=== PATIENT | male | born 1965 | race Caucasian/White ===

== ENCOUNTER → 2021-03-10 17:36 | Outpatient (CLI) | payer BC, SELFPAY ==
[2021-03-10 17:54] LABS: Basophils # 0.1 K/mm3 (0-0.2); Basophils % 0.6 % (0.1-2.0); Eosinophils # 0.5 K/mm3 (0.0-0.4); Eosinophils % 6.2 % (0.1-12.0); Hematocrit 47.7 % (42.0-52.0); Lymphocytes # 2.4 K/mm3 (0.7-4.5); Lymphocytes % 28.8 % (10-50); Mean Corpuscular HGB Conc 31.4 g/dL (31.8-35.4); Mean Corpuscular Hemoglobin 32.4 pg (27.0-31.2); Mean Corpuscular Volume 103.1 fl (80-94); Mean Platelet Volume 7.9 fl (7.4-10.4); Monocytes # 0.5 K/mm3 (0.1-1.0); Monocytes % 6.6 % (1.7-9.3); Neutrophils # 4.8 K/mm3 (1.8-7.8); Neutrophils % 57.8 % (37.0-80.0); Platelet Count 274 K/mm3 (142-424); Red Blood Count 4.63 M/mm3 (4.60-6.20); Red Cell Distribution Width 13.2 % (11.5-17.5); White Blood Count 8.3 K/mm3 (4.8-10.8)
[2021-03-10 17:55] LABS: Chloride 102 mmol/L (98-107); Sodium 138 mmol/L (136-145)
[2021-03-10 17:58] LABS: Alanine Aminotransferase 11 U/L (12-78); Albumin Level 4.3 g/dl (3.5-5.0); Albumin/Globulin Ratio 1.8 (1.1-1.8); Alkaline Phosphatase 96 U/L (38-126); Aspartate Amino Transferase 19 U/L (17-59); Bilirubin,Total 0.5 mg/dl (0.2-1.3); Blood Urea Nitrogen 11 mg/dl (9-20); Calcium 9.3 mg/dl (8.4-10.2); Carbon Dioxide 30 mmol/L (22.0-30.0); Chol/HDL Ratio 3.4 (1-3.5); Cholesterol 158 mg/dl (140-200); Estimated Glomerular Filt Rate 87 ml/min (>60); GFR (African American) 106 ML/MIN (>60); Globulin 2.4 g/dL (1.3-3.2); Glucose 95 mg/dl (74-100); HDL Cholesterol 47 mg/dl (40-60); Total Protein,Serum 6.7 g/dl (6.3-8.2); Triglycerides 61 mg/dl (30-150); VLDL Cholesterol 12 mg/dL (0-40)
[2021-03-10 18:10] LABS: Direct LDL Cholesterol 98.46 mg/dL (100-129)
[2021-03-10 18:15] LABS: T4 (Thyroxine) 9.5 ug/dl (5.53-11.0)
[2021-03-10 18:28] LABS: Thyroid Stimulating Hormone 1.75 uIU/mL (0.465-4.68)
[2021-03-13 06:33] LABS: PSA, Free 0.16 ng/mL; Prostate Specific Ag 0.7 ng/mL (0.0-4.0)
== END ==
PROVIDERS: Visit Provider Nurse Practitioner Family
DX: R63.4 Abnormal weight loss (principal); R07.9 Chest pain, unspecified; K21.9 Gastro-esophageal reflux disease without esophagitis; Z72.0 Tobacco use; Z12.5 Encounter for screening for malignant neoplasm of prostate
CPT/HCPCS: 80053; 80061; 84153; 84154; 84436; 84443; 85025

== ENCOUNTER → 2021-04-15 07:08 | Outpatient (CLI) | payer BC, SELFPAY ==
--- NOTE | 2021-04-15 07:08 | CT_ITS ---
PROCEDURE: CT LUNG SCREENING CLINICAL INDICATION: lung cancer screening COMPARISON: No exams were available for comparison TECHNIQUE: The exam was performed on a GE Light Speed [address] scanner using 2.90 mGy CTDI. A low dose helical CT CHEST was performed on a multi-detector scanner. All CT scans at the facility use one or more dose reduction, viz: automated exposure control, ma/kV adjustment per patient size (including targeted exams where dose is matched to indication, i.e. head), or iterative reconstruction technique. The LDCT was performed in a facility that meets the criteria for the screening program. Data regarding this exam was submitted to ACR which is an approved registry. The order for this exam indicates that it came as a result of a lung cancer screening counseling shard decision-making visit that included all the elements required of such a visit including smoking cessation. The radiologist interpreting this exam meets the CMS criteria for the LDCT lung cancer screening program. The exam is reported using the Lung-RADS classification scale and reported to the ACR registry. NOTE: This study was performed for the specific purposes of lung cancer screening and is not an alternative to diagnostic chest CT. RADIATION DOSE: CTDI vol(CT dose Index-volume) = 2.90mG FINDINGS: Scattered emphysematous changes with biapical scarring and moderate-sized areas of bullous emphysema in the lung apices. No definitive discrete pulmonary nodules. No pleural effusion or pneumothorax. Heart is not enlarged. No pericardial effusion or thickening. A few small non-specific middle mediastinal lymph nodes not pathologically enlarged. No enlarged hilar or axillary nodes. A few small calcified paratracheal and left hilar lymph nodes are present. Thoracic aorta shows mild calcification without aneurysm. Airways are patent. No pulmonary consolidation or ground-glass opacities in the lungs. Images of the upper abdomen show no discrete abnormality. Mild degenerative changes of the thoracic spine are noted. No acute bony abnormality. IMPRESSION: Lung-RADS Category 1 Negative Follow-up: Serial follow-up chest CT in 1 year. Scattered emphysematous changes with biapical scarring and moderate-sized areas of bullous emphysema in the lung apices. No definite discrete pulmonary nodules. Dictated by: Alonso Cunningham 04/25/2021 11:15 Alonso Cunningham in [place] 04/25/2021 11:15
== END ==
LOC: RAD 07:08
PROVIDERS: PCP Nurse Practitioner Family; Visit Provider Internal Medicine Pulmonary Disease
DX: Z87.891 Personal history of nicotine dependence (principal); Z12.2 Encounter for screening for malignant neoplasm of respiratory organs; R06.02 Shortness of breath
CPT/HCPCS: 71271; 94060; 94618; 94726; 94729

== ENCOUNTER → 2021-04-18 10:28 | Outpatient (CLI) | payer BC, SELFPAY ==
--- NOTE | 2021-04-18 | CA_ITS ---
APPROVED REPORT Exam: Pharmacologic Technologist: leann ken, Ht: 5 ft 11 in Wt: 122 lbs BSA: 1.71 m2 HR: 52 bpm BP: 113/79 mmHg Indications: CP, SOB Medical History Medications: Omeprazole,,,,, Allergies: NKA Cardiac Risk Factors: FHX of CAD, Smoking Stress Test Details Test: LEXISCAN HR Resting HR: 53 bpm Max Heart Rate (APMHR): 164.344217 bpm Max HR Achieved: 112 bpm Target HR (85% APMHR): 139.518578 bpm % of APMHR: 68.29 Recovery HR: 84 bpm BP Resting BP: 113/79 mmHg Max BP: 131/85 mmHg Recovery BP: 125.0/81.0 mmHg ECG Clinical Exercise duration: 04:21 min Highest Stage Achieved: Stress ECG Conclusion No chest pain. SOA, nausea and vomiting during peak infusion which resolved in recovery. No ectopy just artifact. Less than 1.5mm ST segment changes. Images to follow. Electronically signed by : Esau Simon, 04/22/2021 12:49:29
--- NOTE | 2021-04-18 11:05 | NM_ITS ---
APPROVED REPORT Exam: Nuclear Stress Test Indication: Chest pain, SOB, Tobacco use, Family history Patient Location: Outpatient Stress Tech: Yaneth Bauer [place] Tech:Jocelynjeni Guillermo, ARRT, RT (R)(N) Ht: 5 ft 11 in Wt: 123 lbs HR: 52 bpm BP: 113/79 mmHg BSA: 1.72 m2 BMI: 17.1 History: Chest pain, SOB, Tobacco use, Family history Procedure: Patient received a 0.4 mg of intravenous Lexiscan, resting heart rate 52 bpm, resting blood pressure 113/79 mmHg, with Lexiscan maximum heart rate achived was 112 bpm which is % of the maximum predicted heart rate and blood pressure was 131/85 mmHg. With Lexiscan, patient denied any complaint of chest pain. Cardiac Stress and Resting SPECT Images: Cardiac Stress and Resting SPECT images were obtained using technetium 99m Myoview 32.7 mCi stress and 10.53 mCi at rest. Ejection fraction: 37% Global Hypokinesia. No fixed or reversible defects. Conclusion: Low EF of 37% with no ischemic changes. Electronically signed by : Antonio Whitney MD 04/20/2021 14:23:28
--- NOTE | 2021-04-18 12:29 | HMH.ITSHM ---
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 []omeprazole
== END ==
LOC: RT 10:30
PROVIDERS: PCP Nurse Practitioner Family; Visit Provider Urology
DX: R06.02 Shortness of breath (principal)
CPT/HCPCS: 78452; 93017; 93306; A9502; J2785

== ENCOUNTER → 2021-05-03 10:59 | Outpatient (CLI) | payer BC, SELFPAY ==
--- NOTE | 2021-05-03 11:28 | CT_ITS ---
PROCEDURE INFORMATION: Exam: CT Neck Without and With Contrast Exam date and time: 05/03/2021 11:28 AM Age: 55 years old Clinical indication: Dysphagia / difficulty swallowing; Additional info: Abnormal pft TECHNIQUE: Imaging protocol: Computed tomography images of the neck without and with contrast. Radiation optimization: All CT scans at this facility use at least one of these dose optimization techniques: automated exposure control; mA and/or kV adjustment per patient size (includes targeted exams where dose is matched to clinical indication); or iterative reconstruction. Contrast material: ISOVUE 370; Contrast volume: 75 ml; Contrast route: IV; COMPARISON: CT LUNG SCREENING 04/15/2021 7:13 AM FINDINGS: Nasopharynx: Unremarkable. Oropharynx: Unremarkable. No significant tonsillar enlargement. Hypopharynx: Unremarkable. Larynx: Unremarkable. Normal epiglottis. Retropharyngeal space: Unremarkable. Submandibular/Parotid glands: Normal. Glands are normal in size. Thyroid: Normal. No enlarged or calcified nodules. Lymph nodes: Unremarkable. No lymphadenopathy. Trachea: Visualized trachea is unremarkable. Lungs: Severe centrilobular emphysematous changes are present bilaterally with multiple bulla. Bones/joints: There are degenerative changes of the spine. Soft tissues: Unremarkable. No significant soft tissue swelling. IMPRESSION: 1. No evidence of acute abnormality. 2. Severe centrilobular emphysematous changes are present bilaterally with multiple bulla.
[2021-05-03 11:38] LABS: Basophils # 0.1 K/mm3 (0-0.2); Basophils % 0.6 % (0.1-2.0); Eosinophils # 0.3 K/mm3 (0.0-0.4); Eosinophils % 2.7 % (0.1-12.0); Hematocrit 44.8 % (42.0-52.0); Hemoglobin 15.2 g/dL (14.1-18.0); Lymphocytes # 2.2 K/mm3 (0.7-4.5); Lymphocytes % 19.3 % (10-50); Mean Corpuscular HGB Conc 33.9 g/dL (31.8-35.4); Mean Corpuscular Hemoglobin 33.1 pg (27.0-31.2); Mean Corpuscular Volume 97.6 fl (80-94); Mean Platelet Volume 7.7 fl (7.4-10.4); Monocytes # 0.7 K/mm3 (0.1-1.0); Monocytes % 6.1 % (1.7-9.3); Neutrophils % 71.3 % (37.0-80.0); Platelet Count 273 K/mm3 (142-424); Red Blood Count 4.58 M/mm3 (4.60-6.20); Red Cell Distribution Width 13.6 % (11.5-17.5); White Blood Count 11.2 K/mm3 (4.8-10.8)
[2021-05-03 11:43] LABS: Blood Urea Nitrogen 12 mg/dl (9-20)
[2021-05-03 11:49] LABS: Estimated Glomerular Filt Rate 77 ml/min (>60); GFR (African American) 94 ML/MIN (>60)
[2021-05-03 12:37] LABS: Chloride 102 mmol/L (98-107); Potassium 4.3 mmoL/L (3.5-5.1); Sodium 138 mmol/L (136-145)
[2021-05-03 12:40] LABS: Anion Gap 12.3 mEq/L (5-15); Blood Urea Nitrogen 13 mg/dl (9-20); Calcium 9.2 mg/dl (8.4-10.2); Carbon Dioxide 28 mmol/L (22.0-30.0); Estimated Glomerular Filt Rate 87 ml/min (>60); GFR (African American) 106 ML/MIN (>60); Glucose 101 mg/dl (74-100)
== END ==
PROVIDERS: Nurse Practitioner Family; PCP Nurse Practitioner Family; Visit Provider Internal Medicine Pulmonary Disease
DX: R94.2 Abnormal results of pulmonary function studies (principal); I20.9 Angina pectoris, unspecified; Z72.0 Tobacco use; Z01.812 Encounter for preprocedural laboratory examination; U07.1 COVID-19
CPT/HCPCS: 36415; 70492; 80048; 82565; 84520; 85025; Q9967; U0003

== ENCOUNTER 2021-05-04 08:43 | Day surgery (SDC) | payer BC, SELFPAY ==
[2021-05-04] VITALS (11 sets, daily range): BP systolic 76–109; BP diastolic 46–73; PULSE 48–64; RESP 13–20; O2SAT 95–100; BMI 17.0
--- NOTE | 2021-05-04 | IR_ITS ---
APPROVED REPORT Patient Location: Outpatient PROCEDURES Left heart catheterization Left ventriculogram Selective coronary angiogram INDICATION Systolic congestive heart failure ejection fraction 37%, High risk abnormal Myoview Informed consent was obtained prior to the procedure. COMPLICATIONS NONE Estimated Blood Loss: LESS THAN 10 ML TECHNIQUE One percent lidocaine used to anesthetize the right anterior aspect of the wrist. The right radial artery was accessed via the Seldinger technique. A 6 Guinean sheath was placed in the right radial artery. 2.5 mg of verapamil, 800 mcg of nitroglycerin, 1mg Lidocaine and 5000 U Heparin were given through the arterial sheath. The trap catheter was also used to perform left heart catheterization, left ventriculogram and selective coronary angiogram. At the end of the procedure the sheath was removed good hemostasis was achieved using Traclet band, patient was transferred to the postop holding area in stable condition. ANGIOGRAPHIC RESULTS The left main artery Normal The left anterior descending artery Proximally normal with a mid vessel 30% stenosis The circumflex artery Nondominant normal The right coronary artery Dominant normal The DURON ventriculogram reveals Mildly dilated ventricle with ejection fraction of 40% The left ventricular end-diastolic pressure 10 mmHg IMPRESSION Mild nonflow limiting mid LAD disease as described above Vertical heart which is mildly dilated with mildly reduced ejection fraction Normal left ventricular end-diastolic pressure PLAN 1. Medical management Electronically signed by : Esau Simon, 05/04/2021 12:18:57
== END 2021-05-04 14:59 | disposition home or self-care (01) ==
LOC: CATHLAB 08:48
PROVIDERS: PCP Emergency Medicine; Visit Provider Internal Medicine
DX: R94.39 Abnormal result of other cardiovascular function study (principal); I50.20 Unspecified systolic (congestive) heart failure; F17.210 Nicotine dependence, cigarettes, uncomplicated; Z79.899 Other long term (current) drug therapy; I20.9 Angina pectoris, unspecified
CPT/HCPCS: 93458; 99152; C1725; C1769; J1644; Q9967

== ENCOUNTER → 2021-06-01 08:59 | Outpatient (CLI) | payer BC, SELFPAY ==
--- NOTE | 2021-06-01 09:00 | FL_ITS ---
PROCEDURE: FL BARIUM SWALLOW CLINICAL INDICATION: diff swallowing COMPARISON: No exams were available for comparison TECHNIQUE: In the upright position the patient was observed to swallow barium in both the AP and lateral view. The cervical esophagus was examined under fluoroscopy with images obtained. The patient was then placed prone in the right anterior oblique position and was observed to swallow barium with Valsalva technique . FLUOROSCOPY TIME: 2 minutes 27 seconds, dose 45.0 mGy FINDINGS: The swallowing function and soft motility appear normal. Spot films of the cervical esophagus show very minimal posterior indentation at the C5-6 level secondary to spurring of the C5-6 disc space. There is a small sliding hiatal hernia. There is no significant GE reflux seen during the study. IMPRESSION: Minimal posterior indentation of the cervical esophagus secondary to mild degenerate change along the small sliding hiatal hernia, otherwise normal appearing esophagus Dictated by: Dr. Magen Wing MD 06/01/2021 11:06 Dr. Magen Wing MD in [place] 06/01/2021 11:06
== END ==
PROVIDERS: PCP Emergency Medicine; Visit Provider Otolaryngology
DX: R13.10 Dysphagia, unspecified (principal)
CPT/HCPCS: 74220

== ENCOUNTER 2021-06-06 10:31 | Day surgery (SDC) | payer BC, SELFPAY ==
[2021-05-05 11:37] VITALS: BMI 16.9
[2021-06-01 10:08] VITALS: BMI 16.9
[2021-06-06] VITALS (7 sets, daily range): BP systolic 93–120; BP diastolic 47–81; PULSE 52–59; RESP 16–18; TEMP 36.4–36.9; O2SAT 96–98
--- NOTE | 2021-06-06 11:59 | HMH.ANESCL ---
[facility] Anesthesia Checklist - Patient Identification Patient Identification: Arm Band - Structural Data Admitted From: Home Planned Operative Procedure/s: egd Consent for Planned Operative Procedure(s) Verified: Yes Verified Documents: Surgical Consent, History and Physical - NPO Status Verified Time NPO: 00:00 - Additional verifications Anesthesia Reactions: No - Airway Assessment C-Spine Mobility Assessed: Yes (mp2) TMJ Mobility Assessed: Yes Dentition: Edentulous - Neurological Assessment Level of Consciousness: Awake, Alert - Anesthesia Plan Anesthesia Risk discussed: Yes Anesthesia Plan: Verified ASA Class: III Anesthesia Type: MAC [facility] History I have reviewed the patient's past medical history: Yes Medical History: Reports:: Chronic Obstructive Pulmonary Disease (COPD), Coronary Artery Disease, Gastroesophageal Reflux Disease(GERD) Denies:: Cancer, Diabetes Mellitus Type 1, Diabetes Mellitus Type 2, Internal Pacemaker, MRSA, Seizures *Have you ever received a pneumonia vaccine?: No *Have you received a flu vaccine this season?: No Anesthesia experience/problems:: nac Other Surgeries: Yes: Cardiac Catheterization, Other. No: Pacemaker Amputation: No Fractures: Yes (left leg) - *Social History Last grade of school completed: High school graduate Smoking Status: Current every day smoker Tobacco Type: cigarettes # Packs/Day (cigarettes): 1 Alcohol Intake: current Alcohol Intake Frequency:: holidays/special occasions only Substance Use Type: marijuana *Occupational Status:: employed Housing: house Household Members: none *Travel in the last 8 weeks: None Family Hx:: Cancer, Coronary Artery Disease
--- NOTE | 2021-06-06 12:20 | P.PCN_ITS ---
[facility] Procedure Note Procedure Note:: Upper Endoscopy Procedure Report: Esophagogastroduodenoscopy with cold biopsies and TTS balloon dilation Endoscopost: Amol Chacko II, MD Referring Physician: Leoncio Pierre M.D./Esau Simon M.D. Date of Procedure: June 06, 2021 Equipment: Olympus GIF 190 standard upper endoscope Sedation: MAC sedation Indications: Mr. Bradley is a 55-year-old gentleman with dysphagia for the last couple of years. This does occur with both liquids and solids. He will sometimes have painful swallowing. Initially, he felt that this may be because of his dentition and tooth loss. He was not chewing or masticating his food as well but recently this has occurred even with liquids. He does get some odynophagia. He has had some chest pain. He has had echocardiogram, stress test and cardiac catheterization. He does have a 37% cardiac ejection fraction but he does not have any coronary artery disease. The patient does report some occasional belching but no abdominal pain. His weight fluctuates and may be a little bit down from baseline. He does have a long history of acid reflux. He reports some early satiety. He also reports some raspy voice or loss of voice with some globus sensation. Procedure: Prior to the procedure, a history and physical exam was performed, and patient's medications and allergies were reviewed. The risks, benefits and alternatives of the sedation and procedure were discussed with the patient. All questions were answered and informed consent was obtained. The patient was brought to the procedure room. Patient identification and proposed procedure were verified by the physician and the nurse. The patient was placed in a left lateral decubitus position and the scope was passed under direct vision. Throughout the procedure, the patient's blood pressure, pulse, and oxygen saturations were monitored continuously. The upper GI endoscopy was accomplished without difficulty. The patient tolerated the procedure well. Findings: The scope was passed directly into the upper esophagus and advanced to the third portion of the duodenum. The post bulbar duodenum and duodenal bulb were normal with normal mucosa and conniventes. The scope was withdrawn through a normal duodenal bulb and pylorus into the stomach. There was some linear reactive gastropathy of the antrum with bile reflux. There was mild chronic gastritis of the body and fundus of the stomach. Upon retroflexion there was a small 2 cm hiatal hernia. Cold biopsies were taken from the antrum and lesser curvature. The scope was then withdrawn into the esophagus. There were 2 tongues of salmon-colored mucosa that were biopsied to rule out intestinal metaplasia. There was no evidence of reflux esophagitis. There was a distal esophageal ring/Schatzki's ring that was dilated to 60 Malian/20 mm with a TTS hydrostatic balloon. There were tertiary contractions and evidence of moderate esophageal dysmotility. The entire esophagus was dilated to 60 Malian/20 mm and there was some resistance at the cricopharyngeus (i.e. cricopharyngeal spasm). The remainder of the esophageal mucosa was normal. Impression: 1. Cricopharyngeal spasm status post dilation to 20 mm 2. Nonerosive GERD with mild esophageal dysmotility and small hiatal hernia (2 cm)?biopsies taken to rule out short segment Gonzalez's esophagus 3. Bile reflux with mild linear reactive gastropathy and mild chronic gastritis Plan: I will follow-up the biopsies. I would recommend PPI therapy presently. We will discuss additional treatment options. He should have some clinical improvement with dilation.
== END 2021-06-06 13:20 | disposition home or self-care (01) ==
LOC: OUTP 10:32
PROVIDERS: PCP Nurse Practitioner Family; Visit Provider Internal Medicine Gastroenterology
PROC: 0DJ08ZZ Inspection of Upper Intestinal Tract, Via Natural or Artificial Opening Endoscopic (ICD-10-PCS; CPT 43235; principal; 2021-06-06 14:30)
DX: J39.2 Other diseases of pharynx (principal); K21.9 Gastro-esophageal reflux disease without esophagitis; K22.4 Dyskinesia of esophagus; K44.9 Diaphragmatic hernia without obstruction or gangrene; K31.9 Disease of stomach and duodenum, unspecified; K29.50 Unspecified chronic gastritis without bleeding; J44.9 Chronic obstructive pulmonary disease, unspecified; I25.10 Atherosclerotic heart disease of native coronary artery without angina pectoris; Z72.0 Tobacco use; F12.90 Cannabis use, unspecified, uncomplicated; Z80.9 Family history of malignant neoplasm, unspecified; Z82.49 Family history of ischemic heart disease and other diseases of the circulatory system
CPT/HCPCS: 43239; 43249; C1726

== ENCOUNTER → 2021-08-06 07:33 | Outpatient (CLI) | payer BC, SELFPAY | PROVIDERS: Visit Provider Internal Medicine Gastroenterology | DX: Z01.812 Encounter for preprocedural laboratory examination (principal); Z11.52 Encounter for screening for COVID-19; Z12.11 Encounter for screening for malignant neoplasm of colon | CPT/HCPCS: C9803; U0003; U0005 ==

== ENCOUNTER 2021-08-08 11:54 | Day surgery (SDC) | payer BC, SELFPAY ==
[2021-08-05 15:51] VITALS: BMI 16.9
[2021-08-08 12:22] VITALS: BP 113/66; PULSE 72; RESP 18; TEMP 37.1; O2SAT 99
--- NOTE | 2021-08-08 13:08 | P.PN_ITS ---
[facility] Anesthesia Checklist - Patient Identification Patient Identification: Arm Band - Structural Data Admitted From: Home Planned Operative Procedure/s: colonoscopy Consent for Planned Operative Procedure(s) Verified: Yes Verified Documents: Surgical Consent, History and Physical - NPO Status Verified Time NPO: 00:00 - Additional verifications Anesthesia Reactions: No - Airway Assessment C-Spine Mobility Assessed: Yes (mp2) TMJ Mobility Assessed: Yes Dentition: Good Dentition - Neurological Assessment Level of Consciousness: Awake, Alert - Anesthesia Plan Anesthesia Risk discussed: Yes Anesthesia Plan: Verified ASA Class: III Anesthesia Type: MAC [facility] History I have reviewed the patient's past medical history: Yes Medical History: Reports:: Chronic Obstructive Pulmonary Disease (COPD), Coronary Artery Disease, Gastroesophageal Reflux Disease(GERD), Hyperlipidemia, Hypertension Denies:: Cancer, Diabetes Mellitus Type 1, Diabetes Mellitus Type 2, Internal Pacemaker, MRSA, Seizures *Have you ever received a pneumonia vaccine?: No *Have you received a flu vaccine this season?: No Anesthesia experience/problems:: nac Other Surgeries: Yes: Cardiac Catheterization, Other. No: Pacemaker Amputation: No Fractures: Yes (left leg) - *Social History Last grade of school completed: High school graduate Smoking Status: Former smoker Tobacco Type: cigarettes # Packs/Day (cigarettes): 1 Smoking End Date: 05/2021 Alcohol Intake: current Alcohol Intake Frequency:: a few times a month Substance Use Type: marijuana *Occupational Status:: employed Housing: house Household Members: none *Travel in the last 8 weeks: None Family Hx:: Cancer, Coronary Artery Disease
--- NOTE | 2021-08-08 13:34 | HMH.PROC ---
[facility] Procedure Note Procedure Note:: Colonoscopy Procedure Report: Colonoscopy with cold snare polypectomy Endoscopist: Amol Chacko II, MD Referring physician: WILLA Winter Date of Procedure: August 08, 2021 Equipment: Olympus 190 variable stiffness pediatric colonoscope Sedation: MAC sedation Indication: Mr. Bradley is a 55-year-old gentleman who is here for diagnostic colonoscopy. He has had postprandial abdominal pain and pressure in the mid/right upper abdomen. This often results in either emesis or bowel movement which can provide some relief of the pain and pressure. He has had trouble maintaining his weight. He does get loose bowel movements or diarrhea since starting the ramipril. He did have an upper endoscopy with ar in May 2021 secondary to dysphagia. He did have some esophageal spasm/esophageal dysmotility. The patient reports no rectal bleeding but may have seen some mucus. He reports no family history of colitis, Crohn's disease or colon cancer. Procedure: Prior to the procedure, a history and physical exam was performed, and patient's medications and allergies were reviewed. The risks, benefits and alternatives of the sedation and procedure were discussed with the patient. All questions were answered and informed consent was obtained. The patient was brought to the procedure room. Patient identification and proposed procedure were verified by the physician and the nurse. The patient was placed in a left lateral decubitus position and the scope was passed under direct vision. Throughout the procedure, the patient's blood pressure, pulse, and oxygen saturations were monitored continuously. The colonoscopy was accomplished without difficulty. The patient tolerated the procedure well. Findings: On digital rectal examination there was normal rectal tone. There were no external hemorrhoids. The colonoscope was introduced through the anal canal to the rectum and advanced to the cecum. The ileocecal valve and appendiceal orifice were identified. The scope was advanced a short distance into the ileum which appeared grossly normal. The scope was then withdrawn into the colon. There were 3 colon polyps (ascending x1 (5 mm), descending x1 (6 mm) and sigmoid x1 (11 mm)) which were all removed via cold snare polypectomy. The remaining cecum, ascending, transverse, descending, sigmoid and rectum were grossly normal. There were no mucosal abnormalities identified. Upon retroflexion within the rectum there were grade 1-2 internal hemorrhoids.The preparation was excellent throughout with [place] Preparation Score of 9. The cecal time was 13 minutes. Impression: 1. Colonic polyps x3 2. Grade 1-2 internal hemorrhoids Plan: I will follow up the polyp pathology and recommend repeat colonoscopy again in 3-5 years based upon the polyp histology. I do feel that the patient has some visceral sensitivity/colonic spasm resulting in his postprandial pain and pressure. I would like to ensure that this does not represent any mesenteric angina and would consider CT angiography if this persists.
[2021-08-08 13:37] VITALS: BP 93/47; PULSE 51; RESP 16; TEMP 36.1; O2SAT 98
[2021-08-08 13:47] VITALS: BP 110/52; PULSE 78; RESP 18; TEMP 36.1; O2SAT 98
[2021-08-08 13:57] VITALS: BP 99/65; PULSE 54; RESP 18; TEMP 36.1; O2SAT 97
[2021-08-08 14:07] VITALS: BP 111/73; PULSE 57; RESP 18; TEMP 36.1; O2SAT 96
[2021-08-08 14:24] VITALS: BP 116/83; PULSE 52; RESP 18; TEMP 36.1; O2SAT 97
== END 2021-08-08 14:24 | disposition home or self-care (01) ==
LOC: OUTP 11:56
PROVIDERS: PCP Emergency Medicine; Visit Provider Internal Medicine Gastroenterology
PROC: 0DJD8ZZ Inspection of Lower Intestinal Tract, Via Natural or Artificial Opening Endoscopic (ICD-10-PCS; CPT 45378; principal; 2021-08-08 13:00)
DX: K63.5 Polyp of colon (principal); K64.0 First degree hemorrhoids; J44.9 Chronic obstructive pulmonary disease, unspecified; I25.10 Atherosclerotic heart disease of native coronary artery without angina pectoris; K21.9 Gastro-esophageal reflux disease without esophagitis; E78.5 Hyperlipidemia, unspecified; I10 Essential (primary) hypertension; Z79.82 Long term (current) use of aspirin; Z79.899 Other long term (current) drug therapy; Z80.9 Family history of malignant neoplasm, unspecified; Z82.49 Family history of ischemic heart disease and other diseases of the circulatory system
CPT/HCPCS: 45385

== ENCOUNTER → 2021-08-23 08:17 | Outpatient (CLI) | payer BC, SELFPAY ==
--- NOTE | 2021-08-23 08:30 | CT_ITS ---
PROCEDURE: CT ABDOMEN PELVIS W CON CLINICAL INDICATION: RUQ PAIN,EPIGASTRIC PAIN,WEIGHT LOSS COMPARISON: No exams were available for comparison TECHNIQUE: IV Contrast: 75ML Isovue 370 Oral Contrast None Axial images obtained with sagittal and coronal reformats. All CT scans at the facility use one or more dose reduction, viz: automated exposure control, ma/kV adjustment per patient size (including targeted exams where dose is matched to indication, i.e. head), or iterative reconstruction technique. FINDINGS: LOWER THORAX: No acute finding ABDOMEN & PELVIS: There are 2 hypodense lesions of the liver 1 in the left hepatic lobe segment 4A measuring 1.2 by 1 cm. This may have some peripheral enhancement inferiorly possibly due to a hemangioma. There is an additional hepatic hypodensity in the left hepatic lobe segment 4 B at 1.2 x 1 cm which is indeterminate. MRI of the abdomen with hemangioma protocol may provide further evaluation. No radiopaque gallstones identified The spleen, adrenal glands, and pancreas have an unremarkable appearance. No renal or ureteral calculi are evident. There are small bilateral renal cyst. No suspicious renal mass. No intestinal obstruction or free air. There is given history of prior appendectomy. Urinary bladder is slightly distended. There is some minimal nonspecific thickening of the bladder wall on both sides posteriorly. This is nonspecific. Prior vasectomy. There is degenerative disc disease at L5-S1 the. What appears to represent a small benign cortical defect present in the left ilium at 7 mm. No acute bony anomalies. IMPRESSION: 1. No acute finding. 2. Two nonspecific hepatic lesions which are indeterminate possibly due to hemangiomas. Suggest MRI of the liver with hemangioma protocol without and with contrast for further evaluation. 3. Mild nonspecific thickening of the urinary bladder which could be seen with cystitis. Other incidental findings as described above. 4. Dictated by: Antonio Whitney MD 08/24/2021 12:55 Antonio Whitney MD in [place] 08/24/2021 12:55
[2021-08-23 08:38] LABS: Blood Urea Nitrogen 12 mg/dl (9-20); Estimated Glomerular Filt Rate 87 ml/min (>60); GFR (African American) 106 ML/MIN (>60)
== END ==
PROVIDERS: PCP Emergency Medicine; Visit Provider Internal Medicine Gastroenterology
DX: R10.11 Right upper quadrant pain (principal); R10.13 Epigastric pain; R63.4 Abnormal weight loss; Z68.1 Body mass index [BMI] 19.9 or less, adult
CPT/HCPCS: 36415; 74177; 82565; 84520; Q9967

== ENCOUNTER → 2021-11-16 13:43 | Outpatient (CLI) | payer BC, SELFPAY | PROVIDERS: PCP Emergency Medicine; Visit Provider Nurse Practitioner Family | DX: I49.9 Cardiac arrhythmia, unspecified (principal) | CPT/HCPCS: 93270 ==

== ENCOUNTER → 2022-02-09 08:04 | Outpatient (CLI) | payer BC, SELFPAY ==
[2022-02-09 08:32] LABS: Blood Urea Nitrogen 10 mg/dl (9-20); Estimated Glomerular Filt Rate 77 ml/min (>60); GFR (African American) 93 ML/MIN (>60)
--- NOTE | 2022-02-09 08:40 | MR_ITS ---
FINAL REPORT CLINICAL HISTORY: RUQ PAIN, EPIGASTRIC PAIN, ABN FINDINGS ON DX IMAGING BLOATING AND GAS 12ML PROHANCE GIVEN COMPARISON: CT dated 08/23/2021 FINDINGS: Multiplanar MR imaging of the abdomen was performed without and with contrast. Motion artifact is identified on some of the images. There are 2 masses in the left hepatic lobe measuring 9 and 10 mm. These show peripheral contrast enhancement which increases over time. The appearance is most consistent with hemangiomas. There is no evidence of biliary ductal dilatation. The gallbladder has an unremarkable appearance. No abnormal fluid collection is seen. There are 2 left renal cysts measuring up to 10 mm. There is also a less than 1 cm renal cyst. No other mass or adenopathy is identified. IMPRESSION: Hepatic masses consistent with hemangiomas. Reviewed, Interpreted and Dictated by Joel Jimenes III, MD Transcribed by Aster Romero Authenticated by Joel Jimenes III, MD on 02/09/2022 01:48:24 PM [facility]
== END ==
PROVIDERS: PCP Emergency Medicine; Visit Provider Internal Medicine Gastroenterology
DX: R10.11 Right upper quadrant pain (principal); R10.13 Epigastric pain; R93.3 Abnormal findings on diagnostic imaging of other parts of digestive tract
CPT/HCPCS: 36415; 74183; 82565; 84520; A9576

== ENCOUNTER → 2022-04-20 14:22 | Outpatient (CLI) | payer BC, SELFPAY ==
--- NOTE | 2022-04-20 14:22 | CT_ITS ---
FINAL REPORT CLINICAL HISTORY: lung cancer screening, hx smoker for 43 years, 1 pack per day COMPARISON: April 15, 2021 FINDINGS: Low-Dose Chest CT CTDI vol (mGy): 2.90 DLP (mGy-cm): 116.72 Axial images were obtained from the lung apex to the mid abdomen by computed tomography. Low-dose protocol was utilized. FINDINGS: CHEST: There is no axillary adenopathy. There is no hilar or mediastinal adenopathy. The heart is proper size. There is no pericardial or pleural effusion. Limited images of the upper abdomen are unremarkable. Lung window images demonstrate severe emphysema with moderate areas of scarring. There is mild bronchiectasis in the lower lobes. There is a stable 2 mm nodule in the anterior right upper lobe on image 139. There is no new mass or pulmonary nodule. IMPRESSION: Lung RADS category 2. Recommend 12 month follow-up low-dose chest CT. Reviewed, Interpreted and Dictated by Joel Jimenes III, MD Transcribed by George El Authenticated and [facility]
== END ==
PROVIDERS: PCP Emergency Medicine; Visit Provider Internal Medicine Pulmonary Disease
DX: Z87.891 Personal history of nicotine dependence (principal); Z12.2 Encounter for screening for malignant neoplasm of respiratory organs
CPT/HCPCS: 71271

== ENCOUNTER 2022-05-05 13:41 | Emergency (ER) | payer BC, SELFPAY ==
[2022-05-05 13:50] VITALS: BP 109/76; PULSE 76; RESP 19; TEMP 37.1; O2SAT 98; BMI 16.2
--- NOTE | 2022-05-05 14:22 | HMH.EDUTC ---
[facility] [place] Disposition Clinical Impression: Viral syndrome Disposition: Home, Self-Care Condition on Discharge: Good Instructions: DI for COVID-19 (Suspected or Confirmed ), Preventing the Spread of Coronavirus Discharge Instructions Additional Instructions: *Monitor Temp, Over the counter Motrin or Tylenol as directed/as needed Tylenol every 4 hours and Motrin every 6 hours (as long as your family doctor has told you that you can take it) for fever or pain. and straight to ER if unable to lower temp less than 101.0 after medication given *Warm salt water gargles may help to soothe the throat *Throat Lozenges *Warm fluids like tea with honey may help to soothe the throat *Sleep elevated *Humidifier/Vaporizer *Flonase 2 sprays in each nostril daily but be aware that it may take 2-3 days before you notice improvement *Bromfed may cause drowsiness. Know how it effects you (your child) before driving, caring for small child, or sending your child to school. Not other antihistamines/allergy medications while taking bromfed Your throat swab was sent for culture. Those results are typically sent to your primary care. Be sure to follow up in 2-3 days with your family doctor/primary care physician if no improvement so they can review those result and treat if necessary. If you don?t have a primary care doctor, I recommend you get one but in the mean time, you will have to return to a walk in clinic Follow up IMMEDIATELY for new or worsening symptoms or no Noticeable improvement over the next 48-72 hours. 911 for difficulty breathing or swallowing You were tested for today for COVID19 your test result should be back in the next 24-48 hours, you may check your results on the [facility] my Health Portal Make sure to take your Vitamins Vit. C Vit D and Zinc if you can take them Referrals: Leoncio Pierre MD [Primary Care Provider] - As needed Forms: Work/School Release Medical Decision Making - Kenny Inquiry Pt receiving controlled substance: No Kenny was queried for this patient: No Vital Signs: 05/05/22 13:50 Temperature 98.7 F Temperature Source Oral Pulse Rate [Right Brachial] 76 Respiratory Rate 19 Blood Pressure [Right Arm] 109/76 L Blood Pressure Mean [Right Arm] 87 Blood Pressure Source [Right Arm] Automatic Cuff Blood Pressure Position [Right Arm] Sitting 02 Sat by Pulse Oximetry 98 Oxygen Delivery Method Room Air Orders (Tests/Meds): ORDERS Category Date Time Status Covid-19 Nasal PCR ([facility]) Routine Lab 05/05/22 14:[address] [facility] [place] HPI - General Stated complaint: covid test, symptoms Time Seen by Provider: 05/05/22 14:00 Mode of Arrival: Ambulatory Source of Information: Patient Limitations: No Limitations Description of Symptoms (Recalled from Triage Doc. by RN): PATIENT C/O FEVER AND MUSCLE SORENESS SINCE YESTERDAY. REQUESTING COVID TEST HEENT Symptoms (Recalled from RN notes): No Resp Symptoms (Recalled from RN notes): No Skin Symptoms (Recalled from RN notes): No MS Symptoms (Recalled from RN notes): Yes Functional Status (Recalled from RN notes): WNL - History of Present Illness Provider Complaint: Patient states that he started feeling bad yesterday States that he had fever yesterday and took an at home COVID test and it was positive States that he came in today to get tested for work since they do not accept home tests - Related Data Home Medications Medication Instructions Recorded Confirmed omeprazole 40 mg capsule,delayed 40 mg PO DAILY cap 07/20/21 05/05/22 release Aspirin [Aspirin 81mg chewable 81 mg PO DAILY 05/05/22 05/05/22 tab] Buspirone HCl [Buspar 5mg tablet] 5 mg PO DAILY 05/05/22 05/05/22 Allergies Allergy/AdvReac Type Severity Reaction Status Date / Time No Known Allergies Allergy Verified 04/20/22 14:48 - Worker's Comp Is this a Worker's Comp case?: No [facility] History - Hepatitis A Screen Attestation statement:: This patient has been screened for
[2022-05-05 14:32] VITALS: BP 109/76; PULSE 76; RESP 19; TEMP 37.1; O2SAT 98
== END 2022-05-05 14:34 | disposition home or self-care (01) ==
PROVIDERS: Emergency Provider Nurse Practitioner; PCP Emergency Medicine
DX: U07.1 COVID-19 (principal); R50.9 Fever, unspecified; R52 Pain, unspecified
CPT/HCPCS: 99212; C9803; G0463; U0003; U0005

== ENCOUNTER → 2023-01-23 13:56 | Outpatient (CLI) | payer BC, SELFPAY ==
--- NOTE | 2023-01-23 14:00 | XR_ITS ---
FINAL REPORT CLINICAL HISTORY: swelling and pain in top of RT foot,no known injur FINDINGS: Right foot Three views were obtained. There is no acute fracture or dislocation. The joint spaces appear normal. No soft tissue abnormality is identified. IMPRESSION: No acute process. Reviewed, Interpreted and Dictated by Joel Jimenes III, MD Transcribed by Aster Romero Authenticated and [facility]
== END ==
PROVIDERS: PCP Emergency Medicine; Visit Provider Emergency Medicine
DX: M79.671 Pain in right foot (principal); M79.89 Other specified soft tissue disorders
CPT/HCPCS: 73630

== ENCOUNTER 2024-04-10 13:51 | Outpatient (CLI) | payer BC, SELFPAY ==
[2024-04-10 14:14] LABS: Basophils # 0.1 K/mm3 (0-0.2); Basophils % 1.1 % (0.1-2.0); Eosinophils # 0.4 K/mm3 (0.0-0.4); Eosinophils % 5.9 % (0.1-12.0); Hematocrit 44.4 % (42.0-52.0); Hemoglobin 14.5 g/dL (14.1-18.0); Lymphocytes % 26.7 % (10-50); Mean Corpuscular HGB Conc 32.6 g/dL (31.8-35.4); Mean Corpuscular Hemoglobin 33.5 pg (27.0-31.2); Mean Corpuscular Volume 102.9 fl (80-94); Mean Platelet Volume 7.9 fl (7.4-10.4); Monocytes # 0.5 K/mm3 (0.1-1.0); Monocytes % 7.2 % (1.7-9.3); Neutrophils # 4.4 K/mm3 (1.8-7.8); Platelet Count 264 K/mm3 (142-424); Red Blood Count 4.31 M/mm3 (4.60-6.20); Red Cell Distribution Width 13.7 % (11.5-17.5); White Blood Count 7.4 K/mm3 (4.8-10.8)
[2024-04-10 15:45] LABS: Alanine Aminotransferase 15 U/L (12-78); Aspartate Amino Transferase 22 U/L (17-59); Blood Urea Nitrogen 15 mg/dl (9-20); Carbon Dioxide 31 mmol/L (22.0-30.0); Cholesterol 158 mg/dl (140-200); Estimated Glomerular Filt Rate 62 ml/min (>60); GFR (African American) 75 ML/MIN (>60); Triglycerides 68 mg/dl (30-150); VLDL Cholesterol 14 mg/dL (0-40)
[2024-04-10 15:58] LABS: Troponin I < 0.01 ng/ml (0.00-0.034)
[2024-04-10 16:03] LABS: Free T4 (Free Thyroxine) 0.88 ng/dl (0.78-2.19)
[2024-04-10 16:16] LABS: Thyroid Stimulating Hormone 2.45 uIU/mL (0.465-4.68)
[2024-04-10 17:18] LABS: Albumin Level 4.2 g/dl (3.5-5.0); Alkaline Phosphatase 96 U/L (38-126); Anion Gap 11.3 mEq/L (5-15); Bilirubin,Direct 0.2 mg/dl (0.0-0.4); Bilirubin,Indirect 0.4 mg/dL (0.0-0.9); Bilirubin,Total 0.6 mg/dl (0.2-1.3); Bilirubin,Unconjugated 0.4 mg/dL (0.0-1.1); Calcium 9.5 mg/dl (8.4-10.2); Chloride 102 mmol/L (98-107); Glucose 92 mg/dl (74-100); HDL Cholesterol 53 mg/dl (40-60); Potassium 4.3 mmoL/L (3.5-5.1); Sodium 140 mmol/L (136-145); Total Protein,Serum 6.8 g/dl (6.3-8.2)
[2024-04-10 17:29] LABS: Direct LDL Cholesterol 93.14 mg/dL (100-129)
== END 2024-04-10 23:59 | disposition home or self-care (01) ==
LOC: LAB 13:52
PROVIDERS: PCP Nurse Practitioner Family; Visit Provider Internal Medicine
DX: I25.118 Atherosclerotic heart disease of native coronary artery with other forms of angina pectoris (principal); R06.02 Shortness of breath; Z87.891 Personal history of nicotine dependence
CPT/HCPCS: 36415; 80048; 80061; 80076; 83735; 84439; 84443; 84484; 85025

== ENCOUNTER 2024-04-22 12:16 | Outpatient (CLI) | payer BC, SELFPAY ==
[2024-04-22] MEDS: ISOTOPE MYOVIEW (PER STUDY) 1 DOSE IV (14:22)
[2024-04-22] MEDS: SODIUM CHLORIDE 0.9% 10ML SYR (RAD ONLY) 10 ML IV ×2 (14:22)
== END 2024-04-22 23:59 | disposition home or self-care (01) ==
LOC: RAD 12:17
PROVIDERS: PCP Nurse Practitioner Family; Visit Provider Internal Medicine
DX: R06.02 Shortness of breath (principal); I25.118 Atherosclerotic heart disease of native coronary artery with other forms of angina pectoris
CPT/HCPCS: 78452; 93017; 93018; 93306; A9502

== ENCOUNTER 2024-06-06 07:47 | Day surgery (SDC) | payer BC, SELFPAY ==
[2024-06-06] VITALS (12 sets, daily range): BP systolic 89–122; BP diastolic 49–70; PULSE 43–52; RESP 14–19; TEMP 36.6; O2SAT 97–100; BMI 17.0
--- NOTE | 2024-06-06 07:03 | IR_ITS ---
APPROVED REPORT Patient Location: Outpatient PROCEDURES Left heart catheterization Left ventriculogram Selective coronary angiogram INDICATION Angina pectoris, Abnormal Myoview Informed consent was obtained prior to the procedure. COMPLICATIONS NONE Estimated Blood Loss: LESS THAN 10 ML TECHNIQUE One percent lidocaine used to anesthetize the right anterior aspect of the wrist. The right radial artery was accessed via the Seldinger technique. A 6 Tamazight sheath was placed in the right radial artery. 2.5 mg of Verapamil, 800 mcg of nitroglycerin, 1mg Lidocaine and 5000 U Heparin were given through the arterial sheath. The papa catheter was also used to perform left heart catheterization, left ventriculogram and selective coronary angiogram. At the end of the procedure the sheath was removed good hemostasis was achieved using Traclet band, patient was transferred to the postop holding area in stable condition. ANGIOGRAPHIC RESULTS The left main artery Normal The left anterior descending artery Proximal 10% luminal irregularities with mid vessel 20 to 30% smooth stenosis BEVERLY II flow was present down the vessel The circumflex artery Normal The right coronary artery Dominant normal The DURON ventriculogram reveals Preserved at 55 to 60% The left ventricular end-diastolic pressure 10 mmHg IMPRESSION Mild nonflow limiting coronary disease Slow flow down the LAD consistent with endothelial dysfunction Preserved ejection fraction Normal left ventricular end-diastolic pressure PLAN 1. Treatment of endothelial dysfunction. Consider nitrates and possibly Ranexa 2. Risk factor modification Electronically signed by : Esau Simon MD 06/06/2024 14:34:41
[2024-06-06 08:27] LABS: Basophils # 0.1 K/mm3 (0-0.2); Basophils % 0.9 % (0.1-2.0); Eosinophils # 0.4 K/mm3 (0.0-0.4); Eosinophils % 6.2 % (0.1-12.0); Hematocrit 43.3 % (42.0-52.0); Hemoglobin 13.5 g/dL (14.1-18.0); Lymphocytes # 1.7 K/mm3 (0.7-4.5); Lymphocytes % 24.8 % (10-50); Mean Corpuscular HGB Conc 31.1 g/dL (31.8-35.4); Mean Corpuscular Hemoglobin 32.3 pg (27.0-31.2); Mean Platelet Volume 7.8 fl (7.4-10.4); Monocytes # 0.5 K/mm3 (0.1-1.0); Monocytes % 7.4 % (1.7-9.3); Neutrophils # 4.1 K/mm3 (1.8-7.8); Neutrophils % 60.6 % (37.0-80.0); Platelet Count 232 K/mm3 (142-424); Red Blood Count 4.16 M/mm3 (4.60-6.20); Red Cell Distribution Width 13.4 % (11.5-17.5); White Blood Count 6.7 K/mm3 (4.8-10.8)
[2024-06-06 08:39] LABS: Chloride 109 mmol/L (98-107); Potassium 3.9 mmoL/L (3.5-5.1); Sodium 138 mmol/L (136-145)
[2024-06-06 08:42] LABS: Anion Gap 4.9 mEq/L (5-15); Blood Urea Nitrogen 16 mg/dl (9-20); Calcium 8.7 mg/dl (8.4-10.2); Carbon Dioxide 28 mmol/L (22.0-30.0); Creatinine Clearance Estimated 62 mL/min (50-200); Estimated Glomerular Filt Rate 76 ml/min (>60); GFR (African American) 93 ML/MIN (>60); Glucose 90 mg/dl (74-100)
[2024-06-06] MEDS: diphenhydrAMINE 50MG/ML VIAL 50 MG IV (09:57)
[2024-06-06] MEDS: 0.9 % SODIUM CHLORIDE 500 ML 25 ML IV (09:58)
[2024-06-06] MEDS: HEPARIN 1,000 UNITS/500ML NS (CATH LAB) 3000 UNIT IV (09:58)
[2024-06-06] MEDS: NITROGLYCERIN 800MCG/8ML SYR (CATH LAB) 800 MCG IA (09:59)
[2024-06-06] MEDS: LIDOCAINE 1% 10ML MDV 20 ML IJ (10:00)
[2024-06-06] MEDS: VERAPAMIL 2.5MG/ML 2ML VIAL 2.5 MG IV (10:00)
[2024-06-06] MEDS: HEPARIN 1,000 UNITS/ML 10ML VIAL (CATH LAB) 10000 UNIT IV (10:00)
[2024-06-06] MEDS: FENTANYL 100MCG/2ML VIAL 50 MCG IV (10:28)
[2024-06-06] MEDS: MIDAZOLAM HCL 1MG/1ML 5ML VIAL 1 MG IV (10:28)
[2024-06-06] MEDS: IOPAMIDOL-370 (76%);100ML BOTTLE 80 ML IV (13:51)
--- NOTE | 2024-06-06 15:03 | SUR.PHASEII ---
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 pt verbalized understanding.
== END 2024-06-06 13:20 | disposition home or self-care (01) ==
PROVIDERS: PCP Nurse Practitioner Family; Visit Provider Internal Medicine
DX: I25.118 Atherosclerotic heart disease of native coronary artery with other forms of angina pectoris (principal); R93.1 Abnormal findings on diagnostic imaging of heart and coronary circulation; R94.39 Abnormal result of other cardiovascular function study; E78.5 Hyperlipidemia, unspecified; F17.210 Nicotine dependence, cigarettes, uncomplicated; Z79.899 Other long term (current) drug therapy
CPT/HCPCS: 80048; 85025; 93458; 99152; C1725; C1769; J1200; J1644; J2250; J3010; Q9967

== ENCOUNTER 2024-08-01 15:50 | Emergency (ER) | payer BC, SELFPAY ==
[2024-08-01] VITALS (8 sets, daily range): BP systolic 109–130; BP diastolic 66–84; PULSE 60–80; RESP 18–20; TEMP 37–37.2; O2SAT 95–99; BMI 16.8; BMI 16.7
--- NOTE | 2024-08-01 15:57 | XR_ITS ---
FINAL REPORT CLINICAL HISTORY: pain and swelling COMPARISON: None FINDINGS: Three views of the right knee were obtained. There is no acute fracture or dislocation. There is mild narrowing of the medial compartment joint space. Soft tissue edema is noted anterior to the patella. IMPRESSION: Soft tissue edema without acute bony abnormality. Mild medial compartment joint space narrowing. Reviewed, Interpreted and Dictated by Ricardo Wyatt MD Transcribed by Daphney Casas Authenticated and [facility]
--- NOTE | 2024-08-01 16:20 | ED_ITS ---
Discharge Plan Disposition Patient Disposition: Home, Self-Care Prescriptions Prescriptions: New sulfamethoxazole-trimethoprim [Bactrim DS] 800-160 mg tablet 1 tab PO BID Qty: 20 0RF No Action metoprolol succinate [Toprol XL] 25 mg tablet extended release 24 hr 25 mg PO DAILY Qty: 30 5RF aspirin [Adult Low Dose Aspirin] 81 mg tablet,delayed release (DR/EC) 81 mg PO DAILY Qty: 30 2RF omeprazole 40 mg capsule,delayed release(DR/EC) 40 mg PO DAILY Qty: 90 3RF prednisone 20 mg tablet 20 mg PO BID 5 Days Qty: 10 0RF rosuvastatin [Crestor] 10 mg tablet 10 mg PO DAILY Qty: 30 5RF isosorbide mononitrate 30 mg Tablet Extended Release 24 Hr 30 mg PO DAILY 30 Days Qty: 30 3RF Referrals Follow up/Referrals: Nader Pompa APRN [Primary Care Provider] - See instructions Activity Restrictions/Add. Instructions Additional Instructions/Restrictions: Please start taking the antibiotics as prescribed as soon as you pick them up. Take [id number] pain medications as needed. It is advised that you apply compression using an Kenny wrap and keep the leg elevated while you do not have to be up and walking around. If your symptoms do not start improving over the next 2 to 3 days, please return for reevaluation. If you develop fevers, worsening pain or inability to bend the knee or walk, please return to the ER for reevaluation. Clinical Impressions Clinical Impression: Cellulitis Qualifiers: Site of cellulitis of extremity: lower extremity Laterality: right Instructions Patient Instructions: DI for Cellulitis -- Adult Print Language Print Language: Latvian Discharge ED Provider: Delmis Sanchez [facility] General Chief complaint: Extremity Problem,Nontraumatic Stated complaint: RT knee swelling, painful Mode of Arrival: Ambulatory Source of Information: Patient Time Seen by Provider: 08/01/24 16:15 Description of Symptoms (Recalled from Triage Doc. by RN): RIGHT KNEE RED, SWOLLEN, TENDER TO TOUCH, PAIN 6/10 HEENT Symptoms (Recalled from RN notes): No Resp Symptoms (Recalled from RN notes): No Skin Symptoms (Recalled from RN notes): Yes MS Symptoms (Recalled from RN notes): Yes Functional Status (Recalled from RN notes): WNL History of Present Illness Provider Complaint: Patient states that he has been having some pain and swelling in his right knee and lower leg that has got progressively worse over the last couple of days States swelling and redness worse in his knee but has been swelling down to his sock line and hurts worse when moves or bends his knee and feels like there is a fluid pocket in there, States doesnt thinks he has had a fever but not checked it but did have some nausea today and noticed the knee area was more red and hot feeling and he couldnt hardly bend his knee so he came in Related Data Previous Rx's ?Medication ?Instructions ?Recorded rosuvastatin 10 mg tablet (Crestor) 10 mg PO DAILY #30 tabs 04/11/24 aspirin 81 mg tablet,delayed 81 mg PO DAILY #30 tabs 05/14/24 release (Adult Low Dose Aspirin) metoprolol succinate 25 mg 25 mg PO DAILY #30 tabs 05/14/24 tablet,extended release 24 hr (Toprol XL) isosorbide mononitrate 30 mg 30 mg PO DAILY 30 days #30 tabs 06/06/24 tablet,extended release 24 hr omeprazole 40 mg capsule,delayed 40 mg PO DAILY GERD #90 caps 07/23/24 release prednisone 20 mg tablet 20 mg PO BID 5 days #10 tabs 07/23/24 sulfamethoxazole 800 1 tab PO BID #20 tabs 08/01/24 mg-trimethoprim 160 mg tablet (Bactrim DS) Allergies Allergy/AdvReac Type Severity Reaction Status Date / Time No Known Allergies Allergy Verified 07/23/24 10:26 Worker's Comp Is this a Worker's Comp case?: No [facility] Disclaimer: The information contained in this section may have been updated after the patient was seen, as this information can be updated by other users. 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 GERD (gastroesophageal reflux disease) Surgical History History of cardiac cath Family History Other No significant family history Social History Smoking Status: Former smoker tobacco type: cigarettes packs per day: 1 smoking status start date: 1976 years smoked: 43 smoking status stop date: 2020 how long ago did patient quit smokin years second hand exposure: Yes alcohol intake: current alcohol intake frequency: holidays/special occasions only substance use type: marijuana current occupational status: other Travel in the last 8 weeks: None household members: none housing: house current occupational exposures/hazards: No caffeine: Yes ROS Obtained: Yes All systems reviewed & no additional complaints except as documented and Yes Systems reviewed as appropriate & no additional complaints except as documented Constitutional Constitutional: Reports system reviewed and no additional complaints, except as documented, Reports as per HPI and Denies fever(s) (doest think so hasnt checked it) ENT Ears, Nose, Mouth, and Throat: Reports system reviewed and no additional complaints, except as documented and Reports as per HPI Cardiovascular Cardiovascular: Reports system reviewed and no additional complaints, except as documented and Reports as per HPI Respiratory Respiratory: Reports system reviewed and no additional complaints, except as documented and Reports as per HPI Gastrointestinal Gastrointestingal: Reports system reviewed and no additional complaints, except as documented and as per HPI Musculoskeletal Musculoskeletal: Reports system reviewed and no additional complaints, except as documented, Reports as per HPI and Reports other Comments: Pain, swelling, warmth and redness to right knee area that extends down to calf area Physical Exam General General appearance: alert and in no apparent distress Respiratory Respiratory exam: Present normal lung sounds bilaterally; Absent respiratory distress or wheezes Cardiovascular Cardiovascular exam: Present regular rate, normal rhythm and normal heart sounds Expanded Lower Extremity Exam Right: Knee exam: Present tenderness, swelling, erythema and other (warm to touch) Lower leg exam: Present tenderness (reports mild tenderness worse in knee), swelling and erythema Gait: observed and limited by pain (patient walking with leg extended due to pain when he bends knee) Neurological Exam Neurological exam: Present alert and oriented X3 Medical Decision Making Medical Records Screening: Per USPSTF and CDC recommendations, given the prevalence of disease in our region, it is our hospital?s policy to screen for HIV and viral Hepatitis for all patients aged 18 and over and those with ongoing risk factors. Kenny Inquiry Pt receiving controlled substance: No Kenny was queried for this patient: No Vital Signs: 08/01/24 16:10 Temperature 98.6 F Temperature Source Oral Pulse Rate [Left Brachial] 69 Respiratory Rate 20 Blood Pressure [Left Arm] 130/69 Blood Pressure Mean [Left Arm] 89 02 Sat by Pulse Oximetry 97 Lab Data 08/01/24 16:15 08/01/24 16:15 Orders (Tests/Meds): ORDERS Category Date Time Status Knee XR right 3 views [XR knee RT 3V] Stat Exams 08/01/24 15:57 Taken Medical Decision Narrative: Patient has redness, swelling, warmth and pain in his right knee with redness and swelling extending down to calf area denies known injury, states pain, swelling, redness and warmth worse over the last couple of days and pain worse when he trys to bend his knee and feels like there is fluid in there and when he walks he keeps knee straight due to pain with bending of his knee, spoke with patient and recommended transfer to the ED for furhter work up and evaluation and he agreed spoke to ED staff and patient was moved to the ED for further work up and evaluation
--- NOTE | 2024-08-01 16:27 | HMH.EDGENADL ---
Discharge Plan Disposition Patient Disposition: Home, Self-Care Prescriptions Prescriptions: New sulfamethoxazole-trimethoprim [Bactrim DS] 800-160 mg tablet 1 tab PO BID Qty: 20 0RF No Action metoprolol succinate [Toprol XL] 25 mg tablet extended release 24 hr 25 mg PO DAILY Qty: 30 5RF aspirin [Adult Low Dose Aspirin] 81 mg tablet,delayed release (DR/EC) 81 mg PO DAILY Qty: 30 2RF omeprazole 40 mg capsule,delayed release(DR/EC) 40 mg PO DAILY Qty: 90 3RF prednisone 20 mg tablet 20 mg PO BID 5 Days Qty: 10 0RF rosuvastatin [Crestor] 10 mg tablet 10 mg PO DAILY Qty: 30 5RF isosorbide mononitrate 30 mg Tablet Extended Release 24 Hr 30 mg PO DAILY 30 Days Qty: 30 3RF Referrals Follow up/Referrals: Nader Pompa APRN [Primary Care Provider] - See instructions Activity Restrictions/Add. Instructions Additional Instructions/Restrictions: Please start taking the antibiotics as prescribed as soon as you pick them up. Take [id number] pain medications as needed. It is advised that you apply compression using an Kneny wrap and keep the leg elevated while you do not have to be up and walking around. If your symptoms do not start improving over the next 2 to 3 days, please return for reevaluation. If you develop fevers, worsening pain or inability to bend the knee or walk, please return to the ER for reevaluation. Clinical Impressions Clinical Impression: Cellulitis Qualifiers: Site of cellulitis of extremity: lower extremity Laterality: right Instructions Patient Instructions: DI for Cellulitis -- Adult Print Language Print Language: Citizen Of [place] Discharge ED Provider: Delmis Sanchez General Adult HPI General Chief complaint: Extremity Problem,Nontraumatic Stated complaint: RT knee swelling, painful Time Seen by Provider: 08/01/24 16:15 Mode of Arrival: Ambulatory Source of Information: Patient Description of Symptoms (Recalled from ER Triage Doc. by RN): RIGHT KNEE RED, SWOLLEN, TENDER TO TOUCH, PAIN 6/10 History of Present Illness HPI narrative: Leoncio Bradley is a 58 y/o male presenting with right knee pain. Patient has been experiencing right knee redness, swelling, rash. 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 Patient states the right lower extremity was swollen but not red. Patient was recently placed on a course of steroids by his PCP which cleared up the rash on the knee as well as other areas of the body. Patient denies fevers or chills. Patient noted that the right knee became increasingly swollen and red. Patient states it hurts to bend his right knee and jeans rubbing against it causes pain. Patient denies history of diabetes or blood thinner use. Patient is a former tobacco smoker but quit 3 years ago. Patient denies drainage from the knee, surgical history on the knee, trauma to the knee. Patient does work that requires him to be on his knees frequently. Related Data Previous Rx's ?Medication ?Instructions ?Recorded rosuvastatin 10 mg tablet (Crestor) 10 mg PO DAILY #30 tabs 04/11/24 aspirin 81 mg tablet,delayed 81 mg PO DAILY #30 tabs 05/14/24 release (Adult Low Dose Aspirin) metoprolol succinate 25 mg 25 mg PO DAILY #30 tabs 05/14/24 tablet,extended release 24 hr (Toprol XL) isosorbide mononitrate 30 mg 30 mg PO DAILY 30 days #30 tabs 06/06/24 tablet,extended release 24 hr omeprazole 40 mg capsule,delayed 40 mg PO DAILY GERD #90 caps 07/23/24 release prednisone 20 mg tablet 20 mg PO BID 5 days #10 tabs 07/23/24 sulfamethoxazole 800 1 tab PO BID #20 tabs 08/01/24 mg-trimethoprim 160 mg tablet (Bactrim DS) Allergies Allergy/AdvReac Type Severity Reaction Status Date / Time No Known Allergies Allergy Verified 07/23/24 10:26 [facility] Disclaimer: The information contained in this section may have been updated after the patient was seen, as this information can be updated by other users. 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 GERD (gastroesophageal reflux disease) Surgical History History of cardiac cath Family History Other No significant family history Social History Smoking Status: Former smoker tobacco type: cigarettes packs per day: 1 smoking status start date: 1976 years smoked: 43 smoking status stop date: 2020 how long ago did patient quit smokin years second hand exposure: Yes alcohol intake: current alcohol intake frequency: holidays/special occasions only substance use type: marijuana current occupational status: other Travel in the last 8 weeks: None household members: none housing: house current occupational exposures/hazards: No caffeine: Yes ROS Obtained: Yes All systems reviewed & no additional complaints except as documented Physical Exam General General appearance: alert and in no apparent distress Respiratory Respiratory exam: Absent respiratory distress Cardiovascular Cardiovascular exam: Present regular rate and normal rhythm Extremities Exam Extremities exam: Present full ROM, tenderness and joint swelling (right knee); Absent edema Neurological Exam Neurological exam: Present alert Skin Skin exam: Present warm, dry and erythema (right knee) Medical Decision Making Medical Records Screening: Per USPSTF and CDC recommendations, given the prevalence of disease in our region, it is our hospital?s policy to screen for HIV and viral Hepatitis for all patients aged 18 and over and those with ongoing risk factors. Kenny Inquiry Pt receiving controlled substance: No Vital Signs: 08/01/24 16:10 08/01/24 16:23 08/01/24 16:27 Temperature 98.6 F 98.9 F Temperature Source Oral Oral Pulse Rate 66 Pulse Rate [Left Brachial] 69 80 Respiratory Rate 20 18 Blood Pressure 112/73 Blood Pressure [Left Arm] 130/69 112/73 Blood Pressure Mean [Left Arm] 89 86 Blood Pressure Source Blood Pressure Source [Left Arm] Automatic Cuff 02 Sat by Pulse Oximetry 97 98 99 Oxygen Delivery Method Room Air Room Air 08/01/24 16:31 08/01/24 17:00 08/01/24 17:30 Temperature Temperature Source Pulse Rate 61 60 61 Pulse Rate [Left Brachial] Respiratory Rate Blood Pressure 120/73 122/84 119/66 Blood Pressure [Left Arm] Blood Pressure Mean [Left Arm] Blood Pressure Source Blood Pressure Source [Left Arm] 02 Sat by Pulse Oximetry 95 97 97 Oxygen Delivery Method Room Air Room Air Room Air 08/01/24 18:00 08/01/24 18:15 Temperature 98.9 F Temperature Source Oral Pulse Rate 61 60 Pulse Rate [Left Brachial] Respiratory Rate 18 Blood Pressure 109/73 L 109/73 L Blood Pressure [Left Arm] Blood Pressure Mean [Left Arm] Blood Pressure Source Automatic Cuff Blood Pressure Source [Left Arm] 02 Sat by Pulse Oximetry 97 Oxygen Delivery Method Room Air Room Air Lab Data Lab Results 08/01/24 16:15: WBC 10.0, RBC 4.16 L, Hgb 14.1, Hct 43.5, MCV 104.7 H, MCH 33.9 H, MCHC 32.4, RDW 13.5, Plt Count 253, MPV 7.2 L, Neut % (Auto) 63.3, Lymph % (Auto) 24.1, [place] % (Auto) 9.6 H, Eos % (Auto) 2.6, Baso % (Auto) 0.4, Neut # (Auto) 6.3, Lymph # (Auto) 2.4, [place] # (Auto) 1.0, Eos # (Auto) 0.3, Baso # (Auto) 0.0, ESR 17, Sodium 135 L, Potassium 3.7, Chloride 101, Carbon Dioxide 29, Anion Gap 8.7, BUN 24 H, Creatinine 1.10, Estimated Creat Clear 56, Estimated GFR 69, Est GFR ( Amer) 83, Glucose 96, Calcium 8.7, C-Reactive Protein 39.7 H 08/01/24 16:15 08/01/24 16:15 Orders (Tests/Meds): ORDERS Category Date Time Status Knee XR right 3 views [XR knee RT 3V] Stat Exams 08/01/24 15:57 Completed POCUS Point of Care (ER Only) Stat Exams 08/01/24 16:50 Completed BMP [Basic Metabolic Panel] Stat Lab 08/01/24 16:15 Completed CBC w/Auto Diff [Complete Blood Count Auto Diff] Stat Lab 08/01/24 16:15 Completed CRP [C-Reactive Protein] Stat Lab 08/01/24 16:15 Completed ESR [Erythrocyte Sedimentation Rate] Stat Lab 08/01/24 16:15 Completed Medical Decision Narrative: Leoncio Bradley is a 58 y/o male presenting with right knee pain/swelling/erythema. Patient has had a prolonged course of irritation to the right knee which has now turned into a swollen, erythematous, warm right knee. Differential diagnosis includes but is not limited to, cellulitis, septic arthritis, NSTI, fracture, dislocation, tendon/ligamentous injury, among others. XR of the right knee negative for fracture or dislocation but does demonstrate suprapatellar fluid without gas. Patient CRP elevated. No leukocytosis. Bedside ultrasound demonstrated superficial fluid collection that did not appear to communicate with the joint space. Patient's case was discussed with Dr. Womack who is in agreement with initiation of antibiotics and outpatient follow-up. Patient given information with regards to cellulitis and antibiotic treatment. Patient also given return precautions and follow-up recommendations. Patient was in agreement with this plan. Patient discharged in stable condition. Delmis Sanchez MD PGY-3, Emergency Medicine Procedures Limited Ultrasound Indication:: Red, swollen joint Findings:: Suprapatellar effusion Interpretation:: Patient has significant superficial fluid collection with trace loculations located primarily in the anterolateral aspect of the right knee. No damage to patella tendon appreciated. Critical Care Critical Care Time Critical Care Time: No
[2024-08-01 17:00] LABS: Basophils % 0.4 % (0.1-2.0); Eosinophils # 0.3 K/mm3 (0.0-0.4); Eosinophils % 2.6 % (0.1-12.0); Hematocrit 43.5 % (42.0-52.0); Hemoglobin 14.1 g/dL (14.1-18.0); Lymphocytes # 2.4 K/mm3 (0.7-4.5); Lymphocytes % 24.1 % (10-50); Mean Corpuscular HGB Conc 32.4 g/dL (31.8-35.4); Mean Corpuscular Hemoglobin 33.9 pg (27.0-31.2); Mean Corpuscular Volume 104.7 fl (80-94); Mean Platelet Volume 7.2 fl (7.4-10.4); Monocytes % 9.6 % (1.7-9.3); Neutrophils # 6.3 K/mm3 (1.8-7.8); Neutrophils % 63.3 % (37.0-80.0); Platelet Count 253 K/mm3 (142-424); Red Blood Count 4.16 M/mm3 (4.60-6.20); Red Cell Distribution Width 13.5 % (11.5-17.5)
[2024-08-01 17:01] LABS: Chloride 101 mmol/L (98-107); Sodium 135 mmol/L (136-145)
[2024-08-01 17:02] LABS: Potassium 3.7 mmoL/L (3.5-5.1)
[2024-08-01 17:05] LABS: Anion Gap 8.7 mEq/L (5-15); Blood Urea Nitrogen 24 mg/dl (9-20); Calcium 8.7 mg/dl (8.4-10.2); Carbon Dioxide 29 mmol/L (22.0-30.0); Creatinine Clearance Estimated 56 mL/min (50-200); Estimated Glomerular Filt Rate 69 ml/min (>60); GFR (African American) 83 ML/MIN (>60); Glucose 96 mg/dl (74-100)
[2024-08-01 17:10] LABS: C-Reactive Protein 39.7 mg/L (0-4)
--- NOTE | 2024-08-01 17:35 | PC.NURSE ---
DR RHODES PAGED AT THIS TIME
[2024-08-01 17:39] LABS: Erythrocyte Sedimentation Rate 17 mm/hr (0-20)
--- NOTE | 2024-08-01 17:59 | PC.NURSE ---
DR ESPINOSA AT BEDSIDE TO UPDATE PT
== END 2024-08-01 18:16 | disposition home or self-care (01) ==
LOC: UTC 15:55 → ER 16:22
PROVIDERS: Emergency Provider Student in an Organized Health Care Education/Training Program; PCP Nurse Practitioner Family
DX: L03.115 Cellulitis of right lower limb (principal); I20.9 Angina pectoris, unspecified; K21.9 Gastro-esophageal reflux disease without esophagitis; Z87.891 Personal history of nicotine dependence
CPT/HCPCS: 73562; 80048; 85025; 85651; 86140; 99285

== ENCOUNTER 2024-11-24 09:18 | Outpatient (CLI) | payer BC, SELFPAY ==
[2024-11-24 10:18] LABS: Basophils # 0.1 K/mm3 (0-0.2); Basophils % 0.8 % (0.1-2.0); Eosinophils # 0.7 K/mm3 (0.0-0.4); Eosinophils % 7.4 % (0.1-12.0); Hematocrit 40.6 % (42.0-52.0); Hemoglobin 13.4 g/dL (14.1-18.0); Lymphocytes # 2.6 K/mm3 (0.7-4.5); Mean Corpuscular Hemoglobin 32.2 pg (27.0-31.2); Mean Corpuscular Volume 97.6 fl (80-94); Mean Platelet Volume 9.8 fl (7.4-10.4); Monocytes # 0.8 K/mm3 (0.1-1.0); Monocytes % 8.6 % (1.7-9.3); Neutrophils # 4.9 K/mm3 (1.8-7.8); Neutrophils % 54.1 % (37.0-80.0); Platelet Count 237 K/mm3 (142-424); Red Blood Count 4.16 M/mm3 (4.60-6.20); Red Cell Distribution Width 12.3 % (11.5-17.5)
[2024-11-24 10:56] LABS: Alanine Aminotransferase 17 U/L (12-78); Albumin Level 4.1 g/dl (3.5-5.0); Alkaline Phosphatase 92 U/L (38-126); Anion Gap 8.2 mEq/L (5-15); Aspartate Amino Transferase 23 U/L (17-59); Bilirubin,Direct 0.1 mg/dl (0.0-0.4); Bilirubin,Indirect 0.1 mg/dL (0.0-0.9); Bilirubin,Total 0.2 mg/dl (0.2-1.3); Bilirubin,Unconjugated 0.1 mg/dL (0.0-1.1); Blood Urea Nitrogen 16 mg/dl (9-20); Carbon Dioxide 32 mmol/L (22.0-30.0); Chloride 102 mmol/L (98-107); Chol/HDL Ratio 2.8 (1-3.5); Cholesterol 105 mg/dl (140-200); Estimated Glomerular Filt Rate 76 ml/min (>60); GFR (African American) 92 ML/MIN (>60); Glucose 76 mg/dl (74-100); HDL Cholesterol 38 mg/dl (40-60); Magnesium 2.2 mg/dl (1.6-2.3); Potassium 4.2 mmoL/L (3.5-5.1); Sodium 138 mmol/L (136-145); Total Protein,Serum 6.3 g/dl (6.3-8.2); Triglycerides 135 mg/dl (30-150); VLDL Cholesterol 27 mg/dL (0-40)
[2024-11-24 11:07] LABS: Direct LDL Cholesterol 52.49 mg/dL (100-129)
[2024-11-24 11:25] LABS: Thyroid Stimulating Hormone 2.74 uIU/mL (0.465-4.68)
== END 2024-11-24 23:59 | disposition home or self-care (01) ==
LOC: LAB 09:20
PROVIDERS: PCP Nurse Practitioner Family; Visit Provider Physician Assistant
DX: I25.10 Atherosclerotic heart disease of native coronary artery without angina pectoris (principal); E78.2 Mixed hyperlipidemia; I25.118 Atherosclerotic heart disease of native coronary artery with other forms of angina pectoris; Z72.0 Tobacco use; R12 Heartburn
CPT/HCPCS: 36415; 80048; 80061; 80076; 83735; 84439; 84443; 85025

== ENCOUNTER 2025-06-18 08:03 | Outpatient (CLI) | payer BC, SELFPAY ==
--- OUTSIDE RECORDS SUMMARY | 2025-06-18 08:06 | XMS_ITS | Clinical Summary ---
Author Organization [facility] Address [address] [id number] Care Team Providers Care Canine Deputy Name Role Phone Alonso King MD Primary Care Provider [phone] Social History Tobacco Use Types Packs/Day Years Used Date Smoking Tobacco: Never Assessed Sex and Gender Information Value Date Recorded Sex Assigned at Not on file Legal Sex Male 8:20 PM EDT Gender Identity Not on file Sexual Orientation Not on file Plan of Treatment Health Maintenance Due Date Last Done Comments [facility]-Depression Screening 1964 [facility]-/Child/Adol SDOH Screenings 1964 [facility]- SDOH Screenings 1982 [facility]-Adult SDOH Screenings 1982 [facility]-DTaP,Tdap,and Td Vaccine s (1 - Tdap) 1983 CT Colonography 2009 Colonoscopy 2009 FIT-DNA 2009 FIT 2009 FOBT 2009 Sigmoidoscopy 2009 [facility]-Colorectal Cancer Screening 2009 [facility]-Pneumococcal Vaccine: 50 + Years (1 of 1 - PCV) 2014 [facility]-Zoster Vaccines (1 of 2) 2014 [id number] Vaccine (1 - 20 24-25 season) 2024 [facility]-Influenza Vaccine (#1) 2025 [facility]-RSV Vaccine: 60+ Years o r (1 - 1-dose 75+ series) 2039 HPV Vaccines Aged Out No longer eligi ble based on patient's age to complete this topic [facility]-HIB Vaccines Aged Out No longer e ligible based on patient's age to complete this topic [facility]-Hepatitis A Vaccines Aged Out No longer eligible based on patient's age to complete this topic [facility]-IPV Vaccines Aged Out No longer e ligible based on patient's age to complete this topic [facility]-Rotavirus Vaccines Aged Out No lo nger eligible based on patient's age to complete this topic Insurance [address] [place] [address] [place] Care Teams Canine Deputy Relationship Specialty Start Date End Date Alonso King MD [address] [place] [address] PCP - General 11/12/20
[2025-06-18 08:23] LABS: Blood Urea Nitrogen 15 mg/dl (9-20); Creatinine,Serum 1.00 mg/dl (0.66-1.25); Estimated Glomerular Filt Rate 76 ml/min (>60); GFR (African American) 92 ML/MIN (>60)
--- NOTE | 2025-06-18 08:45 | CT_ITS ---
FINAL REPORT CLINICAL HISTORY: CAD, pain in BLE COMPARISON: None FINDINGS: Post contrast axial imaging of the aorta and bilateral lower extremity was obtained and reviewed. This study was performed with techniques to keep radiation doses as low as reasonably achievable (ALARA). Individualized dose reduction techniques using automated exposure control or adjustment of mA and/or kV according to the patient's size were employed. The celiac axis and SMA are adequately patent. There are dual renal arteries bilaterally. Scattered vascular calcifications are noted of the abdominal aorta and iliac vessels. There is no significant stenosis. Right: There is a irregular margin of the right common femoral artery but no significant stenosis. There are few small scattered calcifications in the distal SFA. The popliteal artery and trifurcation are patent. Left: The common femoral artery is patent. The SFA demonstrates a few tiny calcifications in the adductor canal. The popliteal and trifurcation are patent. There is streak artifact arising from sideplate and screws securing the distal tibia. Review of the remaining abdomen and pelvis demonstrates the lungs are clear. The liver is homogeneous. The gallbladder is present. The spleen is unremarkable. The pancreas and adrenal glands are unremarkable. There is a benign-appearing cyst in the lower pole left kidney measuring 11 mm. The urinary bladder is normal in configuration. The appendix is not definitely identified. IMPRESSION: No evidence of stenosis or occlusion. No acute process. Reviewed, Interpreted and Dictated by Ricardo Wyatt MD Transcribed by Daphney Casas Authenticated and [facility]
[2025-06-18] MEDS: IOPAMIDOL-370 (76%);100ML BOTTLE 100 ML IV (09:06)
[2025-06-18] MEDS: SODIUM CHLORIDE 0.9% 10ML SYR (RAD ONLY) 10 ML IV (09:06)
[2025-06-18] MEDS: IOPAMIDOL-370 (76%);100ML BOTTLE 20 ML IV (09:06)
[2025-06-18] MEDS: 0.9 % SODIUM CHLORIDE 50 ML VIAL IV ×2 (09:06)
--- NOTE | 2025-06-18 09:30 | CA_ITS ---
APPROVED REPORT EXAM: Comprehensive 2D, Doppler, and color-flow Echocardiogram Aged Or Disabled Care Worker: Rebeka Norwood RVT Ht: 5 ft 11 in Wt: 126lbs BSA: 1.73 BP: 109/75 mmHg Indications: CORNARY ARTERY DISEASE,REDUCED EF ON LAST ECHO 2D Dimensions LA Volume 41.50 mL LA Volume Index 23.99 mL/m2 (M/F) 16-34 M-Mode Dimensions RVDd 1.91 cm (0.9-2.6) LA Diam 3.25 cm (1.9-4.0) LVDd 5.13 cm (3.5-5.7) LVDs 3.66 cm (3.5-5.7) IVSd 0.47 cm (0.6-1.1) PWd 0.54 cm (0.6-1.1) EF (Teich) 54.90% FS 28.70% EDV (Teich) 125.50 mL TAPSE 1.38 (<1.7) ESV (Teich) 56.60 mL LV Diastology E Decel Time 197 (160-240 msec) E/A Ratio 1.3 Aortic Valve SURESH Index 1.68 cm2/m2 AoV Peak Celso. 123.0 (50-130 cm/s) AI PHT 864.00 ms AO Peak GR. 6.10 mmHg AO Mean GR. 3.20 (<5 mmHg) AO VTI 28.5 (18-25 cm) SURESH (VTI) 2.97 (2.5-4.5 cm2) Mitral Valve MV E Max Celso. 69.0 (40-130 cm/s) MV A Velocity 52.0 (40-130 cm/s) E/A Ratio 1.33 MV PHT 58.0 ms Pulmonary Valve PV Peak Velocity 57.0 (50-150 cm/s) Tricuspid Valve TR P. Velocity 239.00 cm/s RAP Estimate 8.00 mmHg RVSP 30.80 mmHg Left Ventricle The left ventricle is normal size. Left ventricular systolic function is normal. There is normal left ventricular wall thickness. There is normal LV segmental wall motion. The left ventricular diastolic function is normal. LVEF is 50-55% Right Ventricle The right ventricle is normal size. The right ventricular systolic function is normal. Atria The left atrium size is normal. The right atrium size is normal. There is no color Doppler evidence of interatrial shunt. Aortic Valve The aortic valve opens well. There is no hemodynamically significant aortic valvular stenosis. Mild aortic regurgitation is present. Mitral Valve The mitral valve is normal in structure. No evidence of mitral valve stenosis. Trace mitral regurgitation is present. Tricuspid Valve The tricuspid valve leaflets are thin and pliable. Mild tricuspid regurgitation. RVSP is 20-25 mmHg. Pulmonic Valve The pulmonary valve is grossly normal in structure. Trace pulmonic valve regurgitation is present. Great Vessels The aortic root is normal in size. IVC is normal in size and collapses >50% with inspiration. Pericardium There is no pericardial effusion. Other Information Study Quality: Fair Conclusion Normal LV systolic function (LVEF 50-55%). Normal RV size and function. Mild AI, mild TR. Electronically signed by : Kassandra Mooney MD 06/18/2025 09:48:11
== END 2025-06-18 23:59 | disposition home or self-care (01) ==
LOC: RAD 08:04
PROVIDERS: PCP Nurse Practitioner Family; Visit Provider Physician Assistant
DX: I08.2 Rheumatic disorders of both aortic and tricuspid valves (principal); I25.10 Atherosclerotic heart disease of native coronary artery without angina pectoris; M79.604 Pain in right leg; M79.605 Pain in left leg
CPT/HCPCS: 36415; 75635; 82565; 84520; 93306; Q9967